=== PATIENT | male | born 2000 | race Caucasian/White ===

== ENCOUNTER 2025-07-06 18:03 | Emergency (ER) | payer BC ==
[~2025-07-06] VITALS: Ht 185.4 cm; Wt 72.6 kg
[2025-07-06] MEDS ORDERED: Ondansetron Hydrochloride 4 MG/2 ML VIAL IV ONE (18:45)
[2025-07-06] MEDS ORDERED: SODIUM CHLORIDE 0.9% 1,000 ML IV ONE (18:45)
[2025-07-06 18:58] LABS: MEAN CELL VOLUME 81.1 fl (80.0-94.0); MEAN CORPUSCULAR HGB 28.6 pg (27.0-31.0); MEAN PLATELET VOLUME 10.4 fl (9.6-12.3); NUCLEATED RED BLOOD CELL 0.0 % (0.0-0.0); NUCLEATED RED BLOOD CELL 0.0 10*3/uL (0.0-0.0); PLATELET COUNT AUTOMATED 303 10*3/uL (130-400); RED CELL DISTRI WIDTH 12.9 % (0-14.5)
[2025-07-06 19:05] LABS: MANUAL DIFF REFLEX YES
[2025-07-06 19:20] LABS: BASOPHILS 3 % (0-1); PLATELET SUFFICIENCY NORMAL (NORMAL)
[2025-07-06 20:07] LABS: BILIRUBIN 2+ (Negative); BLOOD Trace-Lysed (Negative); CLARITY Cloudy (Clear); COLOR Dark Yellow (Yellow); KETONE 1+ (Negative); LEUKO ESTERASE Trace (Negative); NITRITE Negative (Negative); PH 5.5 (4.5-8.0); SPECIFIC GRAVITY >= 1.030 (1.001-1.030); UROBILINOGEN 1.0 E.U./dl (0.0-1.0)
[2025-07-06 20:17] LABS: BACTERIA 1+; MUCOUS 3+
[2025-07-06 20:28] LABS: BUN 26 mg/dl (9-23); SGPT/ALT 19 U/L (5-49)
[2025-07-06] MEDS ORDERED: SEPTDS PO (22:46)
[2025-07-06] MEDS ORDERED: PROTONIX40 MG PO (22:47)
== END 2025-07-06 22:57 | disposition home or self-care (01) ==
LOC: ED 18:03 → EDBD 18:08 → ED 18:08
PROVIDERS: Emergency Medicine
DX: K21.9 Gastro-esophageal reflux disease without esophagitis (principal); N39.0 Urinary tract infection, site not specified; Z88.0 Allergy status to penicillin; Z88.1 Allergy status to other antibiotic agents